=== PATIENT | female | born 1965 ===

== ENCOUNTER 2017-01-03 09:36 | Observation (INO) ==
[2017-01-03] MEDS ORDERED: Nitroglycerin 0.4 MG TAB.SUBL SL PRN (09:47)
[2017-01-03] MEDS ORDERED: Aspirin 325 MG TABLET PO ONE (09:47)
[2017-01-03 10:04] LABS: Basophils % 0.6 %; Hemoglobin 14.3 g/dL (11.5-15.4)
[2017-01-03 10:06] LABS: Eosinophils # 0.1 K/mcL (0.0-0.6); Eosinophils % 1.6 %; Hematocrit 41.9 % (35.3-44.9); Immature Platelets 37.9 % (1.1-6.1); Lymphocytes # 1.9 K/mcL (0.6-4.6); Lymphocytes % 30.3 %; Mean Corpuscular HGB Conc 34.1 g/dL (31.6-35.5); Mean Corpuscular Hemoglobin 29.4 pg (28.0-33.3); Mean Corpuscular Volume 86.2 fL (83.0-100.0); Monocytes # 0.3 K/mcL (0.0-1.3); Monocytes % 5.5 %; Neutrophils # 3.8 K/mcL (1.6-8.9); Platelet Count 131 K/mcL (140-400); Red Blood Count 4.86 M/mcL (3.82-4.97)
[2017-01-03 10:10] LABS: Prothrombin Time 10.6 Seconds (9.4-12.1)
--- NOTE | 2017-01-03 10:12 | Emergency Department Note ---
Disposition Clinical Impression: Dizziness, Ataxia Chest pain Qualifiers: Chest pain type: unspecified Qualified Code(s): R07.9 - Chest pain, unspecified Disposition: Admitted As Inpatient Condition: Fair Referrals: NO,PCP [Primary Care Provider] - Forms: ED Satisfaction Letter Time of Disposition: 11:53 Dizziness HPI - General Chief Complaint: ED Syncope Stated Complaint: "Passed Out" Time Seen by Provider: 01/03/17 09:46 Source: patient, family Mode of arrival: ambulatory Limitations: no limitations Nursing Notes Reviewed: Yes Vital Signs Reviewed: Yes - History of Present Illness HPI Narrative: Patient is a 51-year-old female with past medical history of diabetes. She presents today due to syncope versus near syncope. Patient was walking in the hospital, felt dizzy, she fell down. She is unsure if she lost consciousness or not. She says that she has been having dizzy spells now for several weeks, worsened when turning her head to the right. She is says that she has not had an official workup for this. She also has been having chest pain in the center of her chest the past 3 days. She currently has similar chest pain rated an 8 out of 10 described as a tightness. No radiation of the pain. Mild nausea, one episode of vomiting earlier this morning. Denies any fevers, diarrhea, abdominal pain. - Related Data Home Medications Medication Instructions Recorded Confirmed Metformin [Glucophage] 500 mg PO BID 10/11/15 10/11/15 Omeprazole [PriLOSEC] 20 mg PO DAILY 10/11/15 10/11/15 Previous Rx's Medication Instructions Recorded Acetaminophen [Tylenol] 650 mg PO Q6HR PRN #0 tablet 10/12/15 TraMADol [Ultram] 50 mg PO Q6HR PRN #30 tablet 10/12/15 Allergies Allergy/AdvReac Type Severity Reaction Status Date / Time latex Allergy Rash Verified 01/03/17 09:46 naproxen [From Naprosyn] AdvReac Rash Verified 01/03/17 09:46 Constitutional: Denies: fever Cardiovascular: Reports: chest pain Respiratory: Denies: cough, dyspnea, wheezes, hemoptysis Gastrointestinal: Reports: nausea, vomiting. Denies: abdominal pain, diarrhea Genitourinary: Denies: urgency, dysuria Musculoskeletal: Denies: back pain Integumentary: Denies: rash Neurological: Reports: vertigo. Denies: headache, weakness, numbness, paresthesias Past Medical History - Past Medical History Attestation: Yes The following information was validated with the patient. Source: patient Medical history: Reports: diabetes, hyperlipidemia Surgical history: Reports: appendectomy, hysterectomy Psychiatric history: Reports: no psych history - Social History Smoking Status: Never smoker Smokeless Tobacco Status: No Alcohol use: Reports: none Drug use: Reports: none Physical Exam - General Limitations: no limitations General appearance: alert, in no apparent distress - Head Head exam: atraumatic, normocephalic, normal inspection - Eye Eye exam: Present: normal appearance, PERRL, EOMI - ENT ENT exam: normal exam, normal oropharynx, mucous membranes moist - Neck Neck exam: Present: normal inspection, full ROM, trachea midline - Chest Chest inspection: Present: normal inspection, symmetric chest wall rise - Respiratory Respiratory exam: Present: normal lung sounds bilaterally. Absent: respiratory distress, wheezes - Cardiovascular Cardiovascular exam: Present: regular rate, normal rhythm, normal heart sounds - Abdominal Exam Abdominal exam: Present: soft, Non-Tender. Absent: tenderness, distention, guarding, rebound, rigidity - Extremities Exam Extremities exam: Present: normal inspection, full ROM. Absent: tenderness, pedal edema - Neurological Exam Neurological exam: Present: alert, oriented X3, other (Patient visibly dizzy on exam, becomes dizzy when she is raised up from a lying to sitting position. She also has dizziness when her head is turned to the right.) - Psychiatric Psychiatric exam: Present: normal affect, normal mood - Skin Skin exam: Present: warm, dry, intact, normal color Course Course Narrative: Vitals within normal limits. Physical exam shows Patient visibly dizzy on exam , becomes dizzy when she is raised up from a lying to sitting position. She also has dizziness when her head is turned to the right. Otherwise, the rest of her exam was benign. We will obtain workup, CT scan of the head, we will also give the patient nitroglycerin, aspirin for chest pain. We will also give meclizine for dizziness. 11:50 CT that was negative for any acute intracranial abnormality. EKG normal sinus rhythm and no acute changes. Basic blood work not concerning. Troponin negative. Patient had ambulated twice, was unable to because of dizziness, she felt off balance, she collapsed the first time that she tried to get up. Due to dizziness, ataxia, inability to ambulate, will admit for further workup. She was agreeable with this. Also she states her chest pain has gone, she has some mild acid reflux symptoms now. I offered a GI cocktail and she was agreeable with this. Chest X-Ray 01/03/17 09:47 IMPRESSION: No acute cardiopulmonary process. D/ / 01/03/2017 10:06:09 Dominik Fuller MD / madeline Interpreting Provider: Dominik Fuller MD Head CT 01/03/17 09:49 IMPRESSION: No acute intracranial abnormality. D/ / Brooks Galvez MD / Brooks Galvez MD Interpreting Provider: Brooks Galvez MD Vital Signs Temperature 98.4 F 01/03/17 09:46 Pulse Rate 71 01/03/17 09:46 Respiratory Rate 18 01/03/17 09:46 Blood Pressure 110/71 01/03/17 09:46 O2 Sat by Pulse Oximetry 99 01/03/17 09:46 Temperature 98.4 F 01/03/17 09:46 Pulse Rate 75 01/03/17 11:08 Respiratory Rate 18 01/03/17 11:08 Blood Pressure 127/70 01/03/17 11:08 O2 Sat by Pulse Oximetry 100 01/03/17 11:08 Oxygen Delivery Oxygen Delivery Room Air Dizziness - MDM Narrative Medical decision making narrative: Physical exam shows wheezes in bilateral lower lobes. EKG, chest x-ray, basic blood work ordered. Duonebs and prednisone ordered as well. Patient is currently 98% on room air. 11:36 blood work showed concerning abnormalities. Troponin negative. Chest x- ray showed no acute cardiopulmonary process. EKG showed no acute ST elevation or depression. Patient was reassessed after breathing treatments and she states that she feels much better. I offered her admission due to failed outpatient therapy. However, she said that she did not want to stay in the hospital. Currently her oxygen saturation is 98% on room air. Her lung sounds have improved. She has improved aeration. 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 She was happy and agreeable with this plan. She will return if she has any worsening symptoms. - Medical Records Medical records reviewed: Yes I reviewed the patient's medical records. - Lab Data Lab results reviewed: Yes I reviewed the patient's lab results. Result diagrams: 01/03/17 09:58 01/03/17 09:58 Lab Results 01/03/17 01/03/17 01/03/17 Range/Units 09:40 09:58 09:58 WBC 6.2 (4.3-11.1) K/mcL RBC 4.86 (3.82-4.97) M/mcL Hgb 14.3 (11.5-15.4) g/dL Hct 41.9 (35.3-44.9) % MCV 86.2 (83.0-100.0) fL MCH 29.4 (28.0-33.3) pg MCHC 34.1 (31.6-35.5) g/dL RDW 12.0 (11.5-14.5) % Plt Count 131 L (140-400) K/mcL Immature Gran % 1.0 (0-4) % Seg Neutrophils % 61.0 % Lymphocytes % 30.3 % Monocytes % 5.5 % Eosinophils % 1.6 % Basophils % 0.6 % Neutrophils # 3.8 (1.6-8.9) K/mcL Lymphocytes # 1.9 (0.6-4.6) K/mcL Monocytes # 0.3 (0.0-1.3) K/mcL Eosinophils # 0.1 (0.0-0.6) K/mcL Basophils # 0.0 (0.0-0.2) K/mcL Immature Plt Fraction 37.9 H (1.1-6.1) % PT 10.6 (9.4-12.1) Seconds INR 1.0 APTT 29.4 (26.0-36.0) Seconds Sodium (136-145) mEq/L Potassium (3.5-4.5) mEq/L Chloride (98-109) mEq/L Carbon Dioxide (19-29) mEq/L BUN (7-20) mg/dL Creatinine (0.57-1.11) mg/dL Est GFR ( Amer) (> 60) Est GFR (Non-Af Amer) (> 60) BUN/Creatinine Ratio (6-26) Glucose (70-99) mg/dL POC Glucose 318 H (58-89) Calculated Osmolality (280-300) Calcium (8.6-10.8) mg/dL Troponin I (0-0.03) ng/mL 01/03/17 01/03/17 Range/Units 09:58 09:58 WBC (4.3-11.1) K/mcL RBC (3.82-4.97) M/mcL Hgb (11.5-15.4) g/dL Hct (35.3-44.9) % MCV (83.0-100.0) fL MCH (28.0-33.3) pg MCHC (31.6-35.5) g/dL RDW (11.5-14.5) % Plt Count (140-400) K/mcL Immature Gran % (0-4) % Seg Neutrophils % % Lymphocytes % % Monocytes % % Eosinophils % % Basophils % % Neutrophils # (1.6-8.9) K/mcL Lymphocytes # (0.6-4.6) K/mcL Monocytes # (0.0-1.3) K/mcL Eosinophils # (0.0-0.6) K/mcL Basophils # (0.0-0.2) K/mcL Immature Plt Fraction (1.1-6.1) % PT (9.4-12.1) Seconds INR APTT (26.0-36.0) Seconds Sodium 137 (136-145) mEq/L Potassium 3.6 (3.5-4.5) mEq/L Chloride 102 (98-109) mEq/L Carbon Dioxide 25 (19-29) mEq/L BUN 17 (7-20) mg/dL Creatinine 1.01 (0.57-1.11) mg/dL Est GFR ( Amer) > 60 (> 60) Est GFR (Non-Af Amer) 58 L (> 60) BUN/Creatinine Ratio 17 (6-26) Glucose 363 H (70-99) mg/dL POC Glucose (58-89) Calculated Osmolality 300 (280-300) Calcium 9.2 (8.6-10.8) mg/dL Troponin I 0.00 (0-0.03) ng/mL - Radiology Data Radiology results reviewed: Yes I reviewed the patient's radiology results. Chest X-Ray 01/03/17 09:47 IMPRESSION: No acute cardiopulmonary process. D/ / 01/03/2017 10:06:09 Dominik Fuller MD / madeline Interpreting Provider: Dominik Fuller MD Head CT 01/03/17 09:49 IMPRESSION: No acute intracranial abnormality. D/ / Brooks Galvez MD / Brooks Galvez MD Interpreting Provider: Brooks Galvez MD - EKG Data EKG attestation: Yes I reviewed and interpreted this EKG. EKG results narrative: 01/03/17 09:51. Rate 74. SD interval 157. QRS 79. QTC 397. Normal axis. No acute ST elevation or depression. S.B.A.R. - S.[place]y.[place] Situation: Demographics, MOA Background: Presenting Complaint, Relevant PMH, Meds, & Allergies Assessment: Vital Signs, Course and respsone to treatment, Exam Concerns, Patient/Family Expectation, Pertinant Lab Results, Outstanding Labs Recommendation: Barrier(s) to disposition, Recommendation based on pending studies, treatments, or consults S.B.A.RRylan Report Given to: Dr. Connie Hutson Repor Time: 12:34 Attestation Statement - Attestation Attestation: I examined this patient and my medical decision-making was reviewed with the MANAGER SECURITY AND SAFETY/PA/Advanced Practice Nurse/Resident Physician. I agree with the documented findings, disposition and treatment plan as described except to the extent set forth below. Patient emergency department opening of dizziness. Describes as feeling like the room spinning. She is also complaining of some left ear pain. On examination she is awake alert no acute distress. States she is dizzy laying still with her eyes closed. Try to get up and walk couple of times and she is off balance. Lungs clear heart regular. Plan. Patient's dizzy and ataxic. CT unremarkable labs unremarkable. She is not any better after Antivert. Will admit.
[2017-01-03 10:13] LABS: Activated Partial Thrombo Time 29.4 Seconds (26.0-36.0)
[2017-01-03 10:17] LABS: BUN/Creatinine Ratio 17 (6-26); Blood Urea Nitrogen 17 mg/dL (7-20); Calcium 9.2 mg/dL (8.6-10.8); Carbon Dioxide 25 mEq/L (19-29); Chloride 102 mEq/L (98-109); Glucose 363 mg/dL (70-99); Osmolality,Calculated 300 (280-300); Potassium 3.6 mEq/L (3.5-4.5); Sodium 137 mEq/L (136-145); eGFR For African Americans > 60 (> 60); eGFR For Non-African Americans 58 (> 60)
[2017-01-03] MEDS ORDERED: GI Cocktail 40 ML EACH PO ONE (12:29)
--- NOTE | 2017-01-03 13:39 | Electrocardiograph Report ---
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
[2017-01-03] MEDS ORDERED: 0.9 % Sodium Chloride 1,000 ML IVC ONE (14:34)
[2017-01-03] MEDS ORDERED: Naloxone 0.4 MG/ML INJ IVP PRN (15:25)
[2017-01-03 15:34] LABS: Hemoglobin A1C 12.5 %
--- NOTE | 2017-01-03 15:59 | Event Note ---
Date of Encounter: 01/03/17 Time of Encounter: 15:58 I have independently interviewed and examined this patient. I agree with the resident/nurse practitioner with extensions as stated below. The plan of care has been discussed with the patient. Ms Thompson is a 51 Y/O F, Obese, DM, HTN, BPPV was visiting a family member and developed sudden dizziness. Patient reports she has been having dizziness for the past 18 months and has been to an ENT who informed her she has BPPV as well as left sided hearing impairment. At time of review, she was laying comfortably in bed but reports she feels dizzy on attempts to get up. She denies any speech deficits, motor deficits, sensory deficits, or visual problems Physical exam: VAA. Neuro exam, no facial paralysis, no speech deficits, CN intact, no nystagmus vertically or horizontally, no carotid bruit, chest is clear, heart sounds S1, S2 only, no m/g/r, no pedal edema Labs and Imaging reviewed: Head CT with mild L maxillary sinus thickening, CXR , EKG unremarkable. CBC/Chem: Hyperglycemia, thrombocytopenia, slight decrease in GFR. ECHO in 2016 normal resting ECHO, negative stress ECHO. Carotid Doppler unremarkable in 2016. Assessment/Plan: *Vertigo possibly secondary to BPPV with acute exacerbation, Menieres disease. Patient with previous admissions for same, possibly not compliant with medications. 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 *Depression: Continue Citalopram Rest of details as in SOHEILA Rouse documentation..
[2017-01-03 16:18] LABS: Albumin 3.5 g/dL (3.5-5.0); Albumin/Globulin Ratio 0.9 (1.1-2.2); Bilirubin,Direct 0.1 mg/dL (0.0-0.5); Bilirubin,Indirect 0.4 mg/dL (0.0-1.2); Bilirubin,Total 0.5 mg/dL (0.2-1.2); Globulin 3.7 g/dL (2.4-3.5); Total Protein 7.2 g/dL (6.0-8.3)
[2017-01-03] MEDS: 0.9 % Sodium Chloride 1,000 ML IVC SCH (16:48)
--- NOTE | 2017-01-03 16:56 | Internal Med History&Physical ---
Date of Encounter: 01/04/17 Time of Encounter: 15:15 Assessment and Plan (1) Chest pain Current visit: Yes Status: Acute Assess: Patient reports chest pain that is right-sided, feels like a pressure, and rates the pain at 6 on a pain scale of 0 to 10. She states that she has been experiencing this chest pain for 4 to 5 days. Patient denies that the pain radiates to her arms or back. Patient states that she also felt nauseous and vomited this morning. She denies having any recent illnesses, being around anyone who has been ill, fevers, diaphoresis, or night sweats. Plan: Continuous cardiac monitoring Nitroglycerin ordered PRN Continue aspirin Assess vitals Q4 Qualifiers: Chest pain type: unspecified Qualified Code(s): R07.9 - Chest pain, unspecified (2) Dizziness Current visit: Yes Status: Chronic Assess: Patient reports feeling dizziness, but cannot confirm full syncope. Reports she has been experiencing dizziness for several weeks and this has worsened, especially when turning her head to the right or changing positions. Reports that she has headaches that feel as though someone is squeezing her head, especially around the back of her head, when she is experiencing these dizzy spells. Patient states that her vision is blurry as well. Plan: Falls precautions Meclizine ordered PT consult ordered OT consult ordered (3) Meniere's disease of left ear Current visit: Yes Status: Chronic Assess: Patient reports feeling dizziness, but cannot confirm full syncope. Reports she has been experiencing dizziness for several weeks and this has worsened, especially when turning her head to the right or changing positions. Reports that she has headaches that feel as though someone is squeezing her head, especially around the back of her head, when she is experiencing these dizzy spells. Patient states that her vision is blurry as well. Mrs. Thompson states that she cannot hear in her left ear due to a feeling of fullness and fluid that is chronic. States she had tubes placed in her ears but are ineffective. Plan: ENT consult ordered Meclizine ordered Benadryl ordered (4) Headache Current visit: Yes Status: Acute Assess: Patient reports that she has headaches that feel as though someone is squeezing her head, especially around the back of her head, when she is experiencing these dizzy spells. Plan: Falls precautions Tylenol ordered for pain Qualifiers: Headache type: unspecified Headache chronicity pattern: acute headache Intractability: not intractable Qualified Code(s): R51 - Headache (5) Diabetes Current visit: Yes Status: Chronic Assess: Patient reports history of DM and is taking Metformin and insulin at home. Patient reports she monitors her blood glucose daily but has not done so for the past two weeks. Patient also reports eating sweets. Discussed keeping a daily diary of blood glucose readings at home post-discharge. Plan: Diabetic education consult ordered Initiate insulin protocol during admission Hypoglycemic protocol initiated Hold regular oral and home insulin during admission Blood glucose monitoring during admission Continue blood glucose monitoring at home post-discharge Maintain blood glucose diary post-discharge Qualifiers: Diabetes mellitus type: type 2 Diabetes mellitus complication status: with unspecified complications Qualified Code(s): E11.8 - Type 2 diabetes mellitus with unspecified complications (6) Thrombocytopenia Current visit: Yes Status: Chronic Assess: Patient has history of chronic thrombocytopenia. Current labs show platelet count of 131 and immature platelet fraction of 37.9. LFTs within range.Folow up Plan: Follow up with PCP (7) DVT prophylaxis Current visit: Yes Status: Acute DVT prophylaxis ordered due to patient being inpatient status, bed except with assist, and presentation with chest pain. Internal Medicine - H&P: HPI Admitted From: Emergency Dept Plans for Post Hospital Care: Home History of present illness: Mrs. Thompson is a 51 year old obese female who presents from the ED after falling while entering the hospital today. Patient reports feeling dizziness, but cannot confirm full syncope. Reports she has been experiencing dizziness for several weeks and this has worsened, especially when turning her head to the right or changing positions. Reports that she has headaches that feel as though someone is squeezing her head, especially around the back of her head, when she is experiencing these dizzy spells. Patient states that her vision is blurry as well. Mrs. Thompson states that she cannot hear in her left ear due to a feeling of fullness and fluid that is chronic. States she had tubes placed in her ears but are ineffective. She also reports chest pain that is right-sided , feels like a pressure, and rates the pain at 6 on a pain scale of 0 to 10. She states that she has been experiencing this chest pain for 4 to 5 days. Patient denies that the pain radiates to her arms or back. Patient states that she also felt nauseous and vomited this morning. She denies having any recent illnesses, being around anyone who has been ill, fevers, diaphoresis, or night sweats. Patient reports she sometimes has occasional diarrhea, but she attributes this to the Metformin she takes for her DM. Patient states that she has abdominal pain in her epigastric area and lower abdomen. Mrs. Thompson also reports having SOB at night 1-2x per week which makes her sit up in bed to catch her breath. confirmed this, along with the fact that she snores but denies apneic episodes. Patient has a history of DM, hyperlipidemia, benign paroxysmal positional vertigo, paroxysmal nocturnal dyspnea, chronic thrombocytopenia, osteoporosis, chest pain, acute sinusitis, otitis media, and depression. Patient denies any history of cardiac issues or heart disease. Tests performed 01/03/2017 include: CXR: lungs clear, no pleural effusion, no pneumothorax, and no acute cardiopulmonary process. EKG: normal sinus rhythm, normal ECG. HEAD CT w/o contrast: no hemorrhage or acute intracranial abnormality. BRAIN MRI: no suggestion of acute infarct, no hemorrhage or mass, no acute intracranial abnormality, empty sella turcica. Past Med Surg Social Fam HX - Past Medical History Medical history: diabetes, hyperlipidemia, osteoporosis Psychiatric history: no psych history, depression - Past Surgical History Surgical History: appendectomy, hysterectomy, other (Tonsillectomy, adenoidectomy) - Social History Smoking Status: Never smoker Smokeless Tobacco Status: No Alcohol use: none Drug use: none Occupational status: previously employed Current living situation: Home, With Family Activity Level: Independent ambulation Recent Out of Country Travel Within the Last 8 Weeks: No Exposure or Possible Exposure to Illness During Travel: No - Family History Father Race: / Family Member Ethnicity: Living Status: Cause of : Unknown Mother Age: 79 Race: / Family Member Ethnicity: Living Status: Still Living Brother Race: / Family Member Ethnicity: Living Status: Still Living (Mother and brother have no known health issues) Sister Age: 45 Race: / Family Member Ethnicity: Living Status: Still Living Hx Family Endocrine Disorder: Yes (DM) Hx Family Psychosocial Disorders: Yes (Depression) Internal Medicine - H&P: Meds Metformin [Glucophage] 1,000 mg PO BID 10/11/15 [History] Acetaminophen [Tylenol] 650 mg PO Q6HR PRN #0 tablet 10/12/15 [Rx] Atorvastatin [Lipitor] 40 mg PO HS 01/03/17 [History] Cholecalciferol (D-3) [Vitamin D] 2,000 unit PO DAILY 01/03/17 [History] Citalopram [CeleXA] 20 mg PO DAILY 01/03/17 [History] Insulin NPH, HUMAN [HumuLIN N] 15 unit SQ BID 01/03/17 [History] Allergies latex Allergy (Verified 01/03/17 09:46) Rash naproxen [From Naprosyn] Adverse Reaction (Verified 01/03/17 09:46) Rash All Systems PM: A 10-system review of systems was performed and is negative for pertinent findings except as documented above in the HPI. - Constitutional Constitutional: falls, other Additional comments: Patient reports a history of dizziness and vertigo over the past few weeks. States that she fell approximately three weeks ago and injured her right foot and ankle. States that she was seen by health care providers and x-ray was done. X-ray is normal with no visible fractures. Patient reports that ankle and top of foot are still very sore and she cannot place her full weight on the right foot due to the pain. She rates her foot pain at 6 on a scale of 0 to 10. Patient states that she was given Tylenol and a soft cast for her foot injury. Confirms she still uses the soft cast. - EENT Eyes: blurry vision Additional comments: Patient reports that her vision is blurry and this has accompanied her dizziness. Ears: decreased hearing Additional comments: Patient reports loss of hearing in left ear along with chronic feeling of pressure and fullness in this ear. Patient states she had tubes placed in both ears but this has been ineffective. Nose, mouth and throat: no dysphagia, no nasal discharge, no neck pain, no sore throat Additional comments: Patient reports history of sinus problems but denies sinus problems as this time. - Breasts Breasts: as per HPI - Cardiovascular Cardiovascular ROS IM: chest pain, lightheadedness, paroxysmal nocturnal dyspnea Additional comments: Patient reports she has a history of chest pain, vertigo, dizziness, and paroxysmal nocturnal dyspnea. States the PND wakes her from her sleep 1 to 2x per week. - Respiratory Respiratory: dyspnea, snoring Additional comments: Patient reports that she has SOB on occasion, paroxysmal nocturnal dyspnea, and her reports that she snores but denies apneic episodes. - Gastrointestinal Gastrointestinal: abdominal pain, diarrhea, nausea, vomiting Additional comments: Patient reports an episode of nausea and vomiting at home prior to her fall today. She also states that she has diarrhea sometimes due to her Metformin and reports abdominal pain that she is currently experiencing. - Genitourinary Genitourinary: as per HPI Additional comments: Patient reports seeing blood in her urine four weeks ago. Denies that it is ongoing. Additional comments: Patient reports having a hysterectomy. - Musculoskeletal Musculoskeletal ROS IM: as per HPI, other Additional comments: Patient reports ankle and foot pain related to fall she sustained three weeks ago. She rates her pain at 6 on a scale of 0 to 10. - Integumentary Integumentary IM: no rash, no unusual bruising - Neurological Neurological ROS: dizziness, headache(s), vertigo, other visual disturbances Additional comments: Patient reports history of dizziness and headaches that coincide with each other. She also reports history of vertigo and blurry vision that are ongoing. - Psychiatric Psychiatric: depression Additional comments: Patient reports a history of depression that she currently takes medication for. - Endocrine Endocrine IM: as per HPI - Hematologic/Lymphatic Hematologic/Lymphatic: as per HPI, easy bruising Additional comments: Patient reports that she bruises easily but that bruising is usually small and not hematomas. - Allergic/Immunologic Allergic/Immunologic: seasonal rhinorrhea Additional comments: Patient reports that she has seasonal allergies that she currently takes Loratidine for. - Constitutional Vitals: Temp Pulse Resp BP Pulse Ox 98.9 F 61 16 131/86 96 01/03/17 14:25 01/03/17 14:25 01/03/17 14:25 01/03/17 14:25 01/03/17 14:37 General appearance: Present: cooperative, A&O X 3, no acute distress, obese, answers questions appropriately - Head Head exam: Present: atraumatic, normocephalic - Eye Eye exam: Present: PERRL, conjuntiva pink, sclera anicteric Pupils: Present: PERRL Additional comments: No nystagmus upon eye examination. PERRLA. - ENT Additional comments: Patient cannot hear out of her left ear due to chronic fullness and feeling of fluid. Normal hearing in right ear. - Neck Neck exam general surgery: Present: normal inspection, trachea midline - Respiratory Respiratory exam: Present: CTAB. Absent: accessory muscle use, rales, rhonchi, wheezes - Cardiovascular Cardiovascular exam: Present: RRR, +S1, +S2. Absent: diastolic murmur, gallop, rubs, systolic murmur - GI/Abdominal GI/Abdominal exam: Present: guarding, normal bowel sounds, soft, tenderness Additional comments: Upon examination, patient has normal bowel sounds. Physical exam reveals patient guarding and tenderness in the abdomen which she states is ongoing. - Rectal Rectal exam: Present: deferred Additional comments: Patient reports her last BM was last night (brown, formed, no fecal occult blood ). - Additional comments: exam deferred. - Extremities Exam Extremities exam: Present: normal inspection, radial pulses palpable and symetrical Additional comments: Pain present in outer right ankle and top of right foot upon exam. Patient rates pain at 6 on a 0 to 10 scale. - Back Exam Back exam: Present: normal inspection - Neurological Exam Neurological exam: Present: CN II-XII intact, oriented X3, no focal deficits. Absent: pronater drift, facial droop, speech deficit - Psychiatric Psychiatric exam: Present: normal affect, normal mood - Skin Skin exam: Present: dry, intact Internal Med - H&P Results - Labs CBC & Chem 7: 01/03/17 09:58 01/03/17 09:58 - EKG Data EKG shows normal: sinus rhythm Rate: normal - EKG Data Prior EKG available for review: yes When compared to previous EKG: there is no significant change Interpretation IM: normal EKG - Diagnostic Studies Chest x-ray Additional comments: Lungs clear, no pleural effusion, no pneumothorax, no acute cardiopulmonary process. CT scan - head Additional comments: Head CT w/o contrast. No hemorrhage or acute intracranial abnormality. MRI - head Additional comments: No suggestion of acute infarct, no hemorrhage or mass, no acute intracranial abnormality, empty sella turcica.
--- NOTE | 2017-01-03 17:21 | ENT - Consult Note ---
Date of Encounter: 01/03/17 Time of Encounter: 17:15 Assessment and Plan (1) Dizziness Current Visit: Yes Status: Chronic Dizziness, vertigo and suspect multifactorial. BPPV and Meniere's not usually associated with syncopal episode/"passing out" and patient's chest pain. Low suspicion for BPPV but could represent an flare up her Left Menieres' disease or cervicogenic etiology given the left side neck pain, stiffness and headaches. Agree with Meclizine and if not helpful could use Ativan or Valium PRN. Vestibular therapy with neck physiotherapy would be helpful as well. no sign of labrynthitis or acute RONAL or infection. (2) Meniere's disease of left ear Current Visit: Yes Status: Chronic History of left Meniere's disease (left ear pressure, fullness, hearing loss, dizziness and ringing) diagnosed with ENT at [facility]. ? compliance with treatment as patient reports using Diuretics in the past but not currently on any diuretics. Consider restarting Dyazide or diuretic daily and discussed with the patient and her to follow a low Na+ diet. F/u with [facility] ENT and instructed them to call tomorrow and schedule a f/u for next week if possible. History of Present Illness Consult date: 01/03/17 Reason for ENT Consult: vertigo Requesting physician: Steve Kelley History of present illness: Mrs. Thompson is a 51 yo female with obesity, DM who had sudden onset of dizziness, and fell down. ? LOC. She was taken to the ED and CT of head was negative. She has just returned from the MRI. Has had CP for several days and she reports that this feels better now. No h/o heart issues or arrythmias in the past per the patient. She has a long h/o dizziness and vertigo with a diagnosis from [facility] ENT doctor of Meniere's disease left ear. Has had BPPV in the past as well. She reports that she does not follow a low sodium diet and that she used to be on a diuretic (not listed in current medications). The dizziness occurred today and lasted for 4 minutes with some vertigo, nausea, and vomiting. She has had it on and off for several days. last flare up of her vertigo was 5 months ago. She reports that it can occur standing up or with quick position changes. Laying down makes it better. She reports one or two episodes of dizziness with quick turning of her head a weak. Between flare ups she usually does well. Does have hearing loss left ear and c/o increased pressure in the left ear for 4 days. Increased ringing left ear and has had for many years. Right ear is OK. No ear draingae but has had some pain and radiates from temporal area to left neck and head. Neck stiffness x 4 days and increased headaches. No h/o ear surgery or trauma. On Meclizine and sleepy but feeling better with the vertigo. Has used Meclizine in the past as well. Past Med Surg Social Fam HX - Past Medical History Medical history: diabetes, hyperlipidemia, osteoporosis Psychiatric history: no psych history - Past Surgical History Surgical History: appendectomy, hysterectomy - Social History Smoking Status: Never smoker Smokeless Tobacco Status: No Alcohol use: none Drug use: none Medications and Allergies Metformin [Glucophage] 1,000 mg PO BID 10/11/15 [History] Acetaminophen [Tylenol] 650 mg PO Q6HR PRN #0 tablet 10/12/15 [Rx] Atorvastatin [Lipitor] 40 mg PO HS 01/03/17 [History] Cholecalciferol (D-3) [Vitamin D] 2,000 unit PO DAILY 01/03/17 [History] Citalopram [CeleXA] 20 mg PO DAILY 01/03/17 [History] Insulin NPH, HUMAN [HumuLIN N] 15 unit SQ BID 01/03/17 [History] Allergies latex Allergy (Verified 01/03/17 09:46) Rash naproxen [From Naprosyn] Adverse Reaction (Verified 01/03/17 09:46) Rash ENT Exam Initial Vital Signs Temp Pulse Resp BP Pulse Ox 98.4 F 71 18 110/71 99 01/03/17 09:46 01/03/17 09:46 01/03/17 09:46 01/03/17 09:46 01/03/17 09:46 Awake, alert, obese female in NAD. Laying on left side. Voice and speech clear and no facial or neck asymmetries Auricles WNL,no skin lesions. EAC clear bilaterally except for some mild wax Bilateral intact TM's, no RONAL, perforatoin or infection Nose no nasal deformity or skin lesions. Septum straight No pus, polyps , or rhionrrhea. Airway patent bilaterally OC/OP normal mucosa and dentition. Mild macroglossia No lesoins or asymmetries. Pharynx symmetrical . Tonsillectomy scar Neck supple, no LAD or neck masses. No thyroid or salivary gland lesions Good ROM of neck. Tender left SCM and occipital region on palpation No spontaneous or gaze evoked nystagmus. CN's II-XII grossly intact and symmetrical Quick head turning did not elicit any rotatory nystagmus. Exam Initial Vital Signs Temp Pulse Resp BP Pulse Ox 98.4 F 71 18 110/71 99 01/03/17 09:46 01/03/17 09:46 01/03/17 09:46 01/03/17 09:46 01/03/17 09:46 Results - Labs 01/03/17 09:58 01/03/17 09:58 Abnormal lab results Plt Count 131 K/mcL (140-400) L 01/03/17 09:58 Immature Plt Fraction 37.9 % (1.1-6.1) H 01/03/17 09:58 Est GFR (Non-Af Amer) 58 (> 60) L 01/03/17 09:58 Glucose 363 mg/dL (70-99) H 01/03/17 09:58 POC Glucose 155 (58-89) H 01/03/17 16:43 Hemoglobin A1c 12.5 % (-5.6) H 01/03/17 09:58 Globulin 3.7 g/dL (2.4-3.5) H 01/03/17 09:58 Albumin/Globulin Ratio 0.9 (1.1-2.2) L 01/03/17 09:58 All other labs normal. - Imaging Additional studies: CT head reviewed. Consult Discharge Plan - Plan Referrals: NO,PCP [Primary Care Provider] -
[2017-01-03] MEDS ORDERED: *HR* Dextrose 50 % in Water (Syg) 50 ML SYRINGE IVP PRN (17:29)
[2017-01-03] MEDS ORDERED: D5% in Water 1,000 ML IVC PRN (17:29)
[2017-01-03] MEDS ORDERED: Dextrose Gel 15 GM PO PRN ×2 (17:29)
[2017-01-03] MEDS: Insulin LISPRO 300 UNITS/3 ML VIAL SQ SCH (21:42)
[2017-01-03] MEDS: Insulin DETEMIR 100 UNIT/ML X5UNITS SQ SCH (21:43)
[2017-01-03] MEDS: Acetaminophen 325 MG TABLET PO PRN (21:48)
[2017-01-04] MEDS: 0.9 % Sodium Chloride 1,000 ML IVC SCH ×3 (02:56→22:31)
[2017-01-04] MEDS: *HR* Enoxaparin 40 MG/0.4 ML SYRINGE SQ SCH (06:37)
[2017-01-04] MEDS: Insulin LISPRO 300 UNITS/3 ML VIAL SQ SCH ×7 (08:35→20:42)
[2017-01-04] MEDS: Acetaminophen 325 MG TABLET PO PRN ×2 (09:33→15:59)
[2017-01-04] MEDS: Cholecalciferol (D-3) 1,000 UNIT TABLET PO SCH (09:33)
[2017-01-04] MEDS ORDERED: Aspirin 81 MG TAB.CHEW PO ONE (15:20)
--- NOTE | 2017-01-04 15:22 | Internal Med Progress Note ---
Date of Encounter: 01/04/17 Time of Encounter: 13:55 - Assessment and plan (1) Chest pain Current Visit: No Status: Acute Assessment and plan: unlikely cardiac, however will rule out ACS serial TNI ASA, Lipitor tele monitoring Qualifiers: Chest pain type: unspecified Qualified Code(s): R07.9 - Chest pain, unspecified (2) Meniere's disease of left ear Current Visit: Yes Status: Chronic Assessment and plan: ENT consultation appreciated Patient has history of being noncompliant with her menier's disease treatment as per Dr. Buck Will continue with Meclizine and add Ativan or Valium if needed PT eval likely d/c in am pending ACS work up is negative (3) Diabetes Current Visit: Yes Status: Chronic Assessment and plan: REpeat FS: 127 BG within acceptable range continue current insulin regimen monitor FS and BG SS insulin algorithm as needed Qualifiers: Diabetes mellitus type: type 2 Diabetes mellitus complication status: with unspecified complications Qualified Code(s): E11.8 - Type 2 diabetes mellitus with unspecified complications (4) DVT prophylaxis Current Visit: Yes Status: Acute Assessment and plan: Enoxaparin SQ - Subjective Interval history: Patient seen and examined at bedside. Resting in chair complaining of persistent dizziness. Reports of new onset substernal chest pain with radiation to the right arm worsened with deep inspiration. STAT EKG shows NSR at 71bpm, no ST segment changes, ASA to be given will obtain serial TNI PT eval LIkely d/c in am - Constitutional Vitals: Temp Pulse Resp BP Pulse Ox 98.5 F 60 16 104/70 96 01/04/17 11:36 01/04/17 11:36 01/04/17 11:36 01/04/17 11:36 01/04/17 11:36 General appearance: Present: cooperative, A&O X 3, no acute distress, obese, answers questions appropriately - Head Head exam: Present: atraumatic, normocephalic - Eye Eye exam: Present: PERRL, conjuntiva pink, sclera anicteric - Respiratory Respiratory exam: Present: CTAB. Absent: accessory muscle use, rales, rhonchi, wheezes - Cardiovascular Cardiovascular exam: Present: RRR, +S1, +S2. Absent: diastolic murmur, gallop, rubs, systolic murmur - GI/Abdominal GI/Abdominal exam: Present: normal bowel sounds, soft, no peritoneal signs. Absent: distended, tenderness - Extremities Exam Extremities exam: Present: warm, radial pulses palpable and symetrical. Absent : calf tenderness, cyanotic, pedal edema - Neurological Exam Neurological exam: Present: alert, oriented X3, no focal deficits - Psychiatric Psychiatric exam: Present: normal affect, normal mood Internal Medicine: Result - Labs CBC & Chem 7: 01/03/17 09:58 01/03/17 09:58 Labs: Cardiac Enzymes 01/04/17 Range/Units 14:18 Troponin I 0.01 (0-0.03) ng/mL - ABG Interpretation ABG results: PT/INR, D-dimer PT 10.6 Seconds (9.4-12.1) 01/03/17 09:58 - Impressions Impressions Brain MRI 01/03/17 14:34 IMPRESSION: 1. No acute intracranial abnormality. 2. Empty sella turcica. D/ / Sukumar Chambers MD / Sukumar Chambers MD Interpreting Provider: Sukumar Chambers MD Consult Discharge Plan - Plan Referrals: NO,PCP [Primary Care Provider] -
--- NOTE | 2017-01-04 16:21 | Electrocardiograph Report ---
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
[2017-01-04] MEDS: Insulin DETEMIR 100 UNIT/ML X5UNITS SQ SCH (20:42)
[2017-01-05 04:59] LABS: Basophils % 0.4 %; Immature Granulocytes % 0.6 % (0-4); Red Blood Count 4.15 M/mcL (3.82-4.97)
[2017-01-05 05:01] LABS: Eosinophils # 0.2 K/mcL (0.0-0.6); Eosinophils % 2.8 %; Hematocrit 35.9 % (35.3-44.9); Hemoglobin 11.9 g/dL (11.5-15.4); Immature Platelets 37.9 % (1.1-6.1); Lymphocytes # 2.9 K/mcL (0.6-4.6); Lymphocytes % 43.3 %; Mean Corpuscular HGB Conc 33.1 g/dL (31.6-35.5); Mean Corpuscular Hemoglobin 28.7 pg (28.0-33.3); Mean Corpuscular Volume 86.5 fL (83.0-100.0); Monocytes # 0.4 K/mcL (0.0-1.3); Monocytes % 5.2 %; Neutrophils # 3.2 K/mcL (1.6-8.9); Platelet Count 110 K/mcL (140-400); Segmented Neutrophils % 47.7 %
[2017-01-05 05:12] LABS: BUN/Creatinine Ratio 16 (6-26); Blood Urea Nitrogen 12 mg/dL (7-20); Calcium 8.5 mg/dL (8.6-10.8); Carbon Dioxide 23 mEq/L (19-29); Chloride 110 mEq/L (98-109); Glucose 121 mg/dL (70-99); Magnesium 1.6 mg/dL (1.6-2.6); Osmolality,Calculated 293 (280-300); Phosphorous 3.9 mg/dL (2.3-4.7); Potassium 3.7 mEq/L (3.5-4.5); Sodium 141 mEq/L (136-145); eGFR For African Americans > 60 (> 60); eGFR For Non-African Americans > 60 (> 60)
[2017-01-05 05:32] LABS: Platelet Estimate Decreased (Normal)
[2017-01-05] MEDS: *HR* Enoxaparin 40 MG/0.4 ML SYRINGE SQ SCH (06:17)
[2017-01-05] MEDS: Cholecalciferol (D-3) 1,000 UNIT TABLET PO SCH (07:35)
[2017-01-05] MEDS: Insulin LISPRO 300 UNITS/3 ML VIAL SQ SCH ×4 (07:37→12:07)
[2017-01-05] MEDS: 0.9 % Sodium Chloride 1,000 ML IVC SCH (11:17)
--- NOTE | 2017-01-05 12:35 | Discharge Summary ---
Date of Encounter: 01/05/17 Time of Encounter: 12:33 - Discharge Diagnosis (1) Chest pain Priority: Secondary Status: Resolved Qualifiers: Chest pain type: unspecified Qualified Code(s): R07.9 - Chest pain, unspecified (2) Meniere's disease of left ear Priority: Primary Status: Chronic (3) Diabetes Priority: Primary Status: Chronic Qualifiers: Diabetes mellitus type: type 2 Diabetes mellitus complication status: with unspecified complications Qualified Code(s): E11.8 - Type 2 diabetes mellitus with unspecified complications (4) DVT prophylaxis Priority: Secondary Status: Acute - Discharge Medications Prescriptions: Meclizine [Antivert] 25 mg PO TID PRN #30 tablet PRN Reason: Dizziness Home Medications: Metformin [Glucophage] 1,000 mg PO BID 10/11/15 [History] Acetaminophen [Tylenol] 650 mg PO Q6HR PRN #0 tablet 10/12/15 [Rx] Atorvastatin [Lipitor] 40 mg PO HS 01/03/17 [History] Cholecalciferol (D-3) [Vitamin D] 2,000 unit PO DAILY 01/03/17 [History] Citalopram [CeleXA] 20 mg PO DAILY 01/03/17 [History] Insulin NPH, HUMAN [HumuLIN N] 15 unit SQ BID 01/03/17 [History] Meclizine [Antivert] 25 mg PO TID PRN #30 tablet 01/05/17 [Rx] Allergies/Adverse Reactions: Allergies latex Allergy (Verified 01/03/17 09:46) Rash naproxen [From Naprosyn] Adverse Reaction (Verified 01/03/17 09:46) Rash Procedures/tests Complete & Pending: Procedures Performed prior 72 hours Category Date Time Status MR head/brain wo con [MR] Stat MRI 01/03/17 14:34 Completed ECG 12 lead ECG [ECG] Routine Y 01/04/17 13:59 Completed Date of admission: 01/03/17 13:01 Primary care physician: PCP NO Consults: 01/03/17 15:29 Consult to Occupational Therapy [CONS] Routine Comment: Evaluate, develop and implement POC Consult to Physical Therapy [CONS] Routine Comment: Evaluate, develop and implement POC 01/03/17 15:37 Consult to Oral Health Therapist [CONS] Routine Comment: 01/03/17 16:13 Consult to ENT [CONS] Routine Consulting Provider: KILO Morrison Reason for Consult: acute dizziness, hx of meniere's, vertigo Call Completed: Yes 01/04/17 15:16 Consult to [employer] Sales Consultant [CONS] Routine Reason for SW Consult: needs to set up outpatient therapy Discharging clinician: Keesha Carmichael Anticipated date of discharge: 01/05/17 - Patient Status Disposition: Home, Self-Care Condition: Good Functional capacity at discharge: independent ambulation Overall status at discharge: patient is back to baseline - Discharge Instructions Follow Up With: NO,PCP [Primary Care Provider] - Additional Instructions: Please follow up with your primary care physician within one week after your discharge from the hospital. Please follow up with ENT specialist at [facility] after your discharge from the hospital. Meclizine has been added to your home medications for dizziness, use this medications as prescribed. Please resume all your other home medications as prescribed by your primary care physician. - Diet and Activity Activity: resume usual activities as tolerated Diet: diabetic diet, low salt diet Hospital course: Ms. Thompson is a 51 year old female with PMH of DM, obesity, meniere's disease , htn who was admitted for management of dizziness. She was evaluated by ENT specialist. As per ENT patient has history of Meniere's disease and has been noncompliant with her treatment. Meclizine was started and patient was advised to follow up with ENT at [facility]. Patient was also evalluated by PT and outpatient rehab was recommended. Patient's hospital course was further complicated with episode of acute chest pain. Serial TNI and EKG were done and ACS was ruled out. Patient is currently hemodynamically stable and will be discharged to home with follow up with PCP and ENT. Patient is currently chest pain free. She demonstrates understanding of her diagnosis and agree with the discharge care plan. - Time Spent with Patient Total time spent providing and/or coordinating discharge services: Less than 30 minutes - Constitutional Vitals: Temp Pulse Resp BP Pulse Ox 98.9 F 89 18 118/79 93 01/05/17 10:22 01/05/17 12:15 01/05/17 10:22 01/05/17 12:15 01/05/17 10:22 General appearance: Present: cooperative, A&O X 3, morbidly obese, no acute distress, answers questions appropriately - Head Head exam: Present: atraumatic, normocephalic - Eye Eye exam: Present: PERRL, conjuntiva pink, sclera anicteric - Respiratory Respiratory exam: Present: CTAB. Absent: accessory muscle use, rales, rhonchi, wheezes - Cardiovascular Cardiovascular exam: Present: RRR, +S1, +S2. Absent: diastolic murmur, gallop, rubs, systolic murmur - GI/Abdominal GI/Abdominal exam: Present: normal bowel sounds, soft, no peritoneal signs. Absent: distended, tenderness - Extremities Exam Extremities exam: Present: warm, radial pulses palpable and symetrical. Absent : calf tenderness, cyanotic, pedal edema - Neurological Exam Neurological exam: Present: alert, oriented X3. Absent: pronater drift, facial droop, speech deficit - Psychiatric Psychiatric exam: Present: normal affect, normal mood
[2017-01-08 10:31] VITALS: BP 118/79
== END 2017-01-05 14:26 | disposition home or self-care (01) ==
LOC: EMEROO 09:36 → 3NENU 09:36 → SUATTDRO 13:01 → 3NENU 13:51
PROVIDERS: ADMIT Internal Medicine; ATTEND Internal Medicine

== ENCOUNTER 2017-12-12 15:32 | Observation (INO) ==
[2017-12-12] MEDS ORDERED: Ondansetron 4 MG/2 ML VIAL IVP ONE (16:09)
[2017-12-12] MEDS ORDERED: Aspirin 81 MG TAB.CHEW PO ONE (16:09)
--- NOTE | 2017-12-12 16:10 | Emergency Department Note ---
Disposition Clinical Impression: Chest pain Qualifiers: Chest pain type: unspecified Qualified Code(s): R07.9 - Chest pain, unspecified Diabetes Qualifiers: Diabetes mellitus type: type 2 Diabetes mellitus assisted insulin use: with termite treater use Diabetes mellitus complication status: with hyperglycemia Qualified Code(s): E11.65 - Type 2 diabetes mellitus with hyperglycemia Abdominal pain Qualifiers: Abdominal location: right lower quadrant Qualified Code(s): R10.31 - Right lower quadrant pain Disposition: Admitted As Inpatient Condition: Good Time of Disposition: 18:50 General Adult HPI - General Chief complaint: ED Abdominal Pain Stated complaint: RLQ Pain/CAMEJO/CP Time Seen by Provider: 12/12/17 15:42 Source: patient, family Mode of arrival: ambulatory Limitations: language barrier Nursing Notes Reviewed: Yes Vital Signs Reviewed: Yes - History of Present Illness HPI Narrative: 52-year-old female with significant past medical history of diabetes presenting to the emergency Department chief complaint of chest pain, abdominal pain and headache. Patient states she has had some lower abdominal pain for approximately one week today got significantly worse. Today she also started having substernal chest pain that radiated into the left side of her chest when nausea and diaphoresis. Patient has had no cardiac workup in the past. She did not try any medications at home for this. She also discloses headache with the symptoms. Patient denies any recent illnesses, fever, shortness of breath, vomiting or diarrhea. Pain Scale: 10 - Related Data Home Medications Medication Instructions Recorded Confirmed metFORMIN [Glucophage] 1,000 mg PO BIDWM 10/11/15 12/12/17 Calcium Carbonate [Calcium] 500 mg PO DAILY 12/12/17 12/12/17 Insulin NPH Hum/Reg Insulin Hm 24 unit SQ QPM 12/12/17 12/12/17 [Novolin 70-30 100 Unit/ml Vial] Insulin NPH Hum/Reg Insulin Hm 30 unit SQ QAM 12/12/17 12/12/17 [Novolin 70-30 100 Unit/ml Vial] Omeprazole [PriLOSEC] 20 mg PO DAILY 12/12/17 12/12/17 Allergies Allergy/AdvReac Type Severity Reaction Status Date / Time latex Allergy Rash Verified 12/12/17 15:35 naproxen [From Naprosyn] AdvReac Rash Verified 12/12/17 15:35 All systems ED: reviewed and negative except as stated. Cardiovascular: Reports: chest pain Gastrointestinal: Reports: abdominal pain, nausea Neurological: Reports: headache Past Medical History - Past Medical History Attestation: Yes The following information was validated with the patient. Medical history: Reports: diabetes, hyperlipidemia, osteoporosis Surgical history: Reports: appendectomy, hysterectomy, other (Tonsillectomy, adenoidectomy) Psychiatric history: Reports: no psych history, depression MACHINE TRIMMER history: Reports: no MACHINE TRIMMER history - Social History Smoking Status: Never smoker Smokeless Tobacco Status: No Alcohol use: Reports: none Drug use: Reports: none Physical Exam - General Limitations: language barrier General appearance: alert, in no apparent distress - Head Head exam: atraumatic, normocephalic, normal inspection - Eye Eye exam: Present: normal appearance. Absent: scleral icterus, conjunctival injection - ENT ENT exam: normal exam, mucous membranes moist - Neck Neck exam: Present: normal inspection, full ROM. Absent: tenderness, meningismus - Chest Chest inspection: Present: normal inspection, symmetric chest wall rise. Absent : tenderness, rash - Respiratory Respiratory exam: Present: normal lung sounds bilaterally. Absent: respiratory distress, wheezes - Cardiovascular Cardiovascular exam: Present: regular rate, normal rhythm, normal heart sounds - Abdominal Exam Abdominal exam: Present: soft, tenderness. Absent: distention, guarding, rebound, rigidity Abdominal tenderness: Present: suprapubic, moderate - Extremities Exam Extremities exam: Present: normal inspection, full ROM - Neurological Exam Neurological exam: Present: alert, oriented X3 - Psychiatric Psychiatric exam: Present: normal affect, normal mood - Skin Skin exam: Present: warm, intact Course Course Narrative: 52-year-old female presenting to the emergency Department chief complaint of chest pain and abdominal pain. Patient has no known cardiac disease. We will perform basic chest pain workup along with CT of the abdomen and pelvis. Patient still having 8 out of 10 chest pain at this time. We will provide her with aspirin and nitroglycerin. Patient is alert and oriented 3 in the room with stable vital signs. She agrees with this plan. - Reevaluation(s) Reevaluation #1: All patient's lab work has resulted within normal limits. Patient states chest pain is relieved with nitroglycerin. No acute EKG changes. Due to patient's heart score we will plan to admit the patient at this time. Patient is alert and oriented 3 in the room with stable vital signs. She agrees with this plan. I spoke with the hospitalist on-call Dr. Leroy who agrees to accept the patient at this time. Vital Signs Temperature 98.9 F 12/12/17 15:35 Pulse Rate 86 12/12/17 15:35 Respiratory Rate 16 12/12/17 15:35 Blood Pressure 118/72 12/12/17 15:35 O2 Sat by Pulse Oximetry 96 12/12/17 15:35 Temperature 97.8 F 12/13/17 16:42 Pulse Rate 66 12/13/17 16:42 Respiratory Rate 16 12/13/17 16:42 Blood Pressure 108/70 12/13/17 16:42 O2 Sat by Pulse Oximetry 97 12/13/17 16:42 Oxygen Delivery Oxygen Delivery Room Air Medical Decision Making - Medical Records Medical records reviewed: Yes I reviewed the patient's medical records. - Lab Data Lab results reviewed: Yes I reviewed the patient's lab results. Result diagrams: 12/13/17 03:23 12/13/17 03:23 Lab Results 12/12/17 12/12/17 Range/Units 16:20 16:20 WBC 7.6 (4.3-11.1) K/mcL RBC 4.54 (3.82-4.97) M/mcL Hgb 13.1 (11.5-15.4) g/dL Hct 39.4 (35.3-44.9) % MCV 86.8 (83.0-100.0) fL MCH 28.9 (28.0-33.3) pg MCHC 33.2 (31.6-35.5) g/dL RDW 12.6 (11.5-14.5) % Plt Count 125 L (140-400) K/mcL MPV TNP Immature Gran % 0.5 (0-4) % Seg Neutrophils % 59.0 % Lymphocytes % 32.8 % Monocytes % 5.2 % Eosinophils % 1.8 % Basophils % 0.7 % Neutrophils # 4.5 (1.6-8.9) K/mcL Lymphocytes # 2.5 (0.6-4.6) K/mcL Monocytes # 0.4 (0.0-1.3) K/mcL Eosinophils # 0.1 (0.0-0.6) K/mcL Basophils # 0.1 (0.0-0.2) K/mcL Platelet Estimate Slight Decrease L (Normal) Immature Plt Fraction 39.0 H (1.1-6.1) % Sodium 132 L (136-145) mEq/L Potassium 4.1 (3.5-5.1) mEq/L Chloride 100 (98-107) mEq/L Carbon Dioxide 23 (23-29) mEq/L BUN 18 (6-20) mg/dL Creatinine 0.93 (0.60-1.20) mg/dL Est GFR ( Amer) > 60 (> 60) Est GFR (Non-Af Amer) > 60 (> 60) BUN/Creatinine Ratio 19 (6-26) Glucose 378 H (70-105) mg/dL Calculated Osmolality 291 (280-300) Calcium 9.0 (8.6-10.3) mg/dL Total Bilirubin 0.3 (0.3-1.0) mg/dL AST 21 (13-39) Units/L ALT 26 (7-52) Units/L Alkaline Phosphatase 114 H (34-104) Units/L Troponin I < 0.03 (< 0.04) ng/mL Serum Total Protein 6.7 (6.4-8.9) g/dL Albumin 4.0 (3.5-5.7) g/dL Globulin 2.7 (2.4-3.5) g/dL Albumin/Globulin Ratio 1.5 (1.1-2.2) Lipase 55 (11-82) Units/L - Radiology Data Radiology results reviewed: Yes I reviewed the patient's radiology results. Abdomen/Pelvis CT 12/12/17 16:08 IMPRESSION: Diverticulosis coli without evidence of diverticulitis. Hepatic steatosis. Small left adnexal cyst, stable from prior. D/ / Chang Zamarripa MD / Chang Zamarripa MD Interpreting Provider: Chang Zamarripa MD Chest X-Ray 12/12/17 17:48 IMPRESSION: No acute cardiopulmonary disease. D/ / Adolfo Pike MD / Adolfo Pike MD Interpreting Provider: Adolfo Pike MD - EKG Data EKG #1 EKG attestation: Yes I reviewed and interpreted this EKG. EKG results narrative: Sinus rhythm. 87 bpm. MS interval 156, QRS 79, QTC 390. No signs of acute ST segment elevation or ischemia. Compared to previous EKG completed on 2016 no significant changes noted. Attestation Statement - Attestation Attestation: I examined this patient and my medical decision-making was reviewed with the Resident Physician, Dr. Hussein. I agree with the documented findings, disposition and treatment plan as described except to the extent set forth below. Patient is a 52-year-old white female with a history of diabetes mellitus who presents to emergency Department with multiple complaints today including left sided chest pain, lower abdominal pain, mild generalized headache. Patient also concerned that her blood sugars elevated and patient speaks very broken [place] and son is at bedside to help translate. Patient states she was having chest pain earlier today that is nonexertional left-sided radiating through to her back associated with some nausea and diaphoresis. Patient's also complained of a 2 day history of gradually worsening generalized lower abdominal pain with some mild nausea but no vomiting, no bowel changes, no urinary symptoms. Patient states that she has also had a mild generalized headache that was gradual in onset and improves with [id number] medications. Patient denies any recent fevers or chills, no upper respiratory symptoms cough or sore throat, no shortness of breath. Patient denies any cardiac history. I agree with patient's physical exam findings as documented. Vital signs are stable on arrival. Patient's EKG shows normal sinus rhythm with no acute ischemia. Patient was provided aspirin and nitroglycerin which resolved her chest pain. Patient also underwent chest x-ray which was within normal limits as well as an abdominal CT scan which was also within normal limits. Patient's labs otherwise unremarkable. Patient will be admitted for further evaluation of chest pain.
[2017-12-12 16:48] LABS: Basophils # 0.1 K/mcL (0.0-0.2); Basophils % 0.7 %; Eosinophils # 0.1 K/mcL (0.0-0.6); Eosinophils % 1.8 %; Hematocrit 39.4 % (35.3-44.9); Hemoglobin 13.1 g/dL (11.5-15.4); Immature Granulocytes % 0.5 % (0-4); Lymphocytes # 2.5 K/mcL (0.6-4.6); Lymphocytes % 32.8 %; Mean Corpuscular HGB Conc 33.2 g/dL (31.6-35.5); Mean Corpuscular Hemoglobin 28.9 pg (28.0-33.3); Mean Corpuscular Volume 86.8 fL (83.0-100.0); Monocytes # 0.4 K/mcL (0.0-1.3); Monocytes % 5.2 %; Neutrophils # 4.5 K/mcL (1.6-8.9); Platelet Count 125 K/mcL (140-400); Red Blood Count 4.54 M/mcL (3.82-4.97); Red Cell Distribution Width 12.6 % (11.5-14.5)
[2017-12-12 16:53] LABS: Troponin I < 0.03 ng/mL (< 0.04)
[2017-12-12 16:59] LABS: Alanine Aminotransferase 26 Units/L (7-52); Albumin/Globulin Ratio 1.5 (1.1-2.2); Alkaline Phosphatase 114 Units/L (34-104); Aspartate Amino Transferase 21 Units/L (13-39); BUN/Creatinine Ratio 19 (6-26); Bilirubin,Total 0.3 mg/dL (0.3-1.0); Blood Urea Nitrogen 18 mg/dL (6-20); Carbon Dioxide 23 mEq/L (23-29); Chloride 100 mEq/L (98-107); Globulin 2.7 g/dL (2.4-3.5); Glucose 378 mg/dL (70-105); Lipase 55 Units/L (11-82); Osmolality,Calculated 291 (280-300); Potassium 4.1 mEq/L (3.5-5.1); Sodium 132 mEq/L (136-145); Total Protein 6.7 g/dL (6.4-8.9); eGFR For African Americans > 60 (> 60); eGFR For Non-African Americans > 60 (> 60)
[2017-12-12 17:32] LABS: Platelet Estimate Slight Decrease (Normal)
[2017-12-12] MEDS ORDERED: Nitroglycerin 0.4 MG TAB.SUBL SL PRN (17:47)
[2017-12-12] MEDS ORDERED: Naloxone 0.4 MG/ML INJ IVP PRN (21:23)
[2017-12-12] MEDS ORDERED: Acetaminophen 325 MG TABLET PO PRN (21:23)
[2017-12-12] MEDS ORDERED: traMADol 50 MG TABLET PO PRN (21:23)
[2017-12-12] MEDS ORDERED: D5% in Water 1,000 ML IVC PRN (21:25)
[2017-12-12] MEDS ORDERED: Dextrose Gel 15 GM/37.5 ML TUBE PO PRN ×2 (21:25)
[2017-12-12] MEDS ORDERED: *HR* Dextrose 50 % in Water (Syg) 50 ML SYRINGE IVP PRN (21:25)
--- NOTE | 2017-12-12 21:32 | Internal Med History&Physical ---
Date of Encounter: 12/12/17 Time of Encounter: 21:15 Assessment and Plan (1) Chest pain Current visit: Yes Status: Acute To rule out ACS. EKG shows normal sinus rhythm. Continue telemetry monitoring , trend troponins. Check nuclear stress test tomorrow. Start aspirin. Check lipid profile. Qualifiers: Chest pain type: unspecified Qualified Code(s): R07.9 - Chest pain, unspecified (2) Abdominal pain Current visit: Yes Status: Acute Nonspecific. CT abdomen/pelvis shows hepatic steatosis, small left-sided adnexal cyst but no other acute abnormality. Continue diet as tolerated, supportive care. Currently improving. Qualifiers: Abdominal location: right lower quadrant Qualified Code(s): R10.31 - Right lower quadrant pain (3) Obesity Current visit: Yes Status: Chronic Qualifiers: Obesity type: due to excess calories Obesity classification: adult class 2 (BMI 35 - 39.9) Serious obesity comorbidity presence: without serious comorbidity Body mass index: BMI 37.0-37.9 Qualified Code(s): E66.09 - Other obesity due to excess calories; Z68.37 - Body mass index (BMI) 37.0-37.9, adult; Z68.37 - Body mass index (BMI) 37.0-37.9, adult (4) Headache Current visit: Yes Status: Acute Nonspecific. Currently worse with nitroglycerin. We will nitroglycerin for now , use when necessary Tylenol for appropriate headache control. Qualifiers: Headache type: tension-type Headache chronicity pattern: unspecified pattern Intractability: not intractable Qualified Code(s): G44.209 - Tension -type headache, unspecified, not intractable (5) Diabetes Current visit: Yes Status: Chronic Blood sugars noted to be elevated. No acidosis. Continue Accu-Chek blood glucose monitoring with basal bolus insulin regimen. Hemoglobin A1c. 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 Internal Medicine - H&P: HPI Chief complaint: chest pain Admitted From: Emergency Dept Plans for Post Hospital Care: Home History of present illness: Ms. Thompson is a 52 year old female with history of diabetes, Meniere's disease , who presents with complaints of headache, chest pain and abdominal pain. Patient reports that her symptoms started yesterday, with no aggravating or relieving factors. Headache has improved today, but currently worse after receiving nitroglycerin in the emergency room. No blurred vision, focal weakness. Her abdominal pain has started yesterday, intermittent, nonradiating , located in right lower quadrant, not associated with fever, vomiting or diarrhea. Chest pain is located in the central chest, nonradiating, intermittent, no aggravating factors, relieved with nitroglycerin. No prior cardiac workup. Past Med Surg Social Fam HX - Past Medical History Source: patient Medical history: diabetes, hyperlipidemia, osteoporosis Psychiatric history: no psych history, depression - Past Surgical History Surgical History: appendectomy, hysterectomy, other (Tonsillectomy, adenoidectomy) - Social History Smoking Status: Never smoker Smokeless Tobacco Status: No Alcohol use: none Drug use: none Current living situation: Home, With Family Activity Level: Independent ambulation Recent Out of Country Travel Within the Last 8 Weeks: No Exposure or Possible Exposure to Illness During Travel: No - Family History Father Family Member Ethnicity: Living Status: Mother Family Member Ethnicity: Living Status: Still Living Brother Family Member Ethnicity: Living Status: Still Living Sister Family Member Ethnicity: Living Status: Still Living Hx Family Endocrine Disorder: Yes (DM) Internal Medicine - H&P: Meds metFORMIN [Glucophage] 1,000 mg PO BIDWM 10/11/15 [History] Calcium Carbonate [Calcium] 500 mg PO DAILY 12/12/17 [History] Insulin NPH Hum/Reg Insulin Hm [Novolin 70-30 100 Unit/ml Vial] 24 unit SQ QPM 12/12/17 [History] Insulin NPH Hum/Reg Insulin Hm [Novolin 70-30 100 Unit/ml Vial] 30 unit SQ QAM 12/12/17 [History] Omeprazole [PriLOSEC] 20 mg PO DAILY 12/12/17 [History] 3 Allergy/AdvReac Type Severity Reaction Status Date / Time latex Allergy Rash Verified 12/12/17 15:35 naproxen [From Naprosyn] AdvReac Rash Verified 12/12/17 15:35 All Systems PM: A 10-system review of systems was performed and is negative for pertinent findings except as documented above in the HPI. - Constitutional Constitutional: no chills, no fever(s), no night sweats - EENT Eyes: no change in vision, no discharge, no pain, no photophobia Ears: no ear discharge, no ear pain, no tinnitus Nose, mouth and throat: no dysphagia, no nasal discharge, no neck pain, no sore throat - Cardiovascular Cardiovascular ROS IM: chest pain - Respiratory Respiratory: no cough, no dyspnea, no wheezing, no excessive phlegm production - Gastrointestinal Gastrointestinal: abdominal pain - Genitourinary Genitourinary: no change in urinary stream, no dysuria, no flank pain, no hematuria - Musculoskeletal Musculoskeletal ROS IM: no numbness, no tingling - Integumentary Integumentary IM: no rash, no unusual bruising - Neurological Neurological ROS: headache(s), no confusion, no convulsions, no focal weakness, no numbness, no tingling, no tremor(s) - Hematologic/Lymphatic Hematologic/Lymphatic: no easy bruising - Constitutional Vitals: Temp Pulse Resp BP Pulse Ox 97.7 F 70 18 137/87 96 12/12/17 21:29 12/12/17 21:29 12/12/17 21:29 12/12/17 21:29 12/12/17 21:29 General appearance: Present: A&O X 3, obese, answers questions appropriately - Respiratory Respiratory exam: Present: CTAB. Absent: accessory muscle use, rales, rhonchi, wheezes - Cardiovascular Cardiovascular exam: Present: RRR, +S1, +S2. Absent: diastolic murmur, gallop, rubs, systolic murmur - GI/Abdominal GI/Abdominal exam: Present: normal bowel sounds, soft, no peritoneal signs. Absent: distended, tenderness - Extremities Exam Extremities exam: Present: full ROM, warm, radial pulses palpable and symmetrical. Absent: calf tenderness, cyanotic, pedal edema - Neurological Exam Neurological exam: Present: CN II-XII intact, oriented X3, no focal deficits. Absent: pronater drift, facial droop, speech deficit Internal Med - H&P Results - Labs CBC & Chem 7: 12/12/17 16:20 12/12/17 16:20
[2017-12-12] MEDS: *HR* OxyCODONE Immed Rel 5 MG TABLET PO PRN (22:41)
[2017-12-12] MEDS: Insulin DETEMIR 100 UNIT/ML X5UNITS SQ SCH (22:42)
[2017-12-13] MEDS: Insulin LISPRO 300 UNITS/3 ML VIAL SQ SCH ×3 (00:30→12:45)
[2017-12-13 03:59] LABS: BUN/Creatinine Ratio 22 (6-26); Blood Urea Nitrogen 17 mg/dL (6-20); Calcium 8.6 mg/dL (8.6-10.3); Carbon Dioxide 27 mEq/L (23-29); Chloride 108 mEq/L (98-107); Chol/HDL Ratio 6.5 (0-4.9); Cholesterol 226 mg/dL (< 200); Glucose 65 mg/dL (70-105); HDL Cholesterol 35 mg/dL (40-59); LDL Cholesterol,Calculated 141 mg/dL (0-99); Osmolality,Calculated 290 (280-300); Potassium 3.5 mEq/L (3.5-5.1); Sodium 140 mEq/L (136-145); Triglycerides 252 mg/dL (< 150); eGFR For African Americans > 60 (> 60); eGFR For Non-African Americans > 60 (> 60)
[2017-12-13 04:05] LABS: Hemoglobin 13.2 g/dL (11.5-15.4)
[2017-12-13 04:06] LABS: Basophils # 0.1 K/mcL (0.0-0.2); Basophils % 0.6 %; Eosinophils # 0.2 K/mcL (0.0-0.6); Eosinophils % 1.9 %; Hematocrit 38.7 % (35.3-44.9); Immature Granulocytes % 0.7 % (0-4); Immature Platelets 37.7 % (1.1-6.1); Lymphocytes # 4.6 K/mcL (0.6-4.6); Lymphocytes % 53.4 %; Mean Corpuscular HGB Conc 34.1 g/dL (31.6-35.5); Mean Corpuscular Hemoglobin 29.1 pg (28.0-33.3); Mean Corpuscular Volume 85.4 fL (83.0-100.0); Monocytes # 0.6 K/mcL (0.0-1.3); Monocytes % 6.4 %; Neutrophils # 3.2 K/mcL (1.6-8.9); Platelet Count 128 K/mcL (140-400); Red Blood Count 4.53 M/mcL (3.82-4.97); Red Cell Distribution Width 12.5 % (11.5-14.5)
[2017-12-13] MEDS ORDERED: Regadenoson 0.4 MG/5 ML SYRINGE IVP ONE (05:44)
[2017-12-13] MEDS ORDERED: Aspirin Enteric Coated 81 MG Tablet PO SCH (09:00)
[2017-12-13] MEDS: Insulin DETEMIR 100 UNIT/ML X5UNITS SQ SCH (10:20)
[2017-12-13] MEDS: *HR* OxyCODONE Immed Rel 5 MG TABLET PO PRN (10:26)
[2017-12-13 14:23] LABS: Estimated Average Glucose 260 mg/dl; Hemoglobin A1C 10.7 %
--- NOTE | 2017-12-13 16:10 | Discharge Summary ---
Orders not resulted at time of discharge: Pending orders 12/13/17 06:00 NM spencer perf SPECT multi [NM] Routine Date of Encounter: 12/13/17 Time of Encounter: 16:08 - Discharge Diagnosis (1) Chest pain Priority: Primary Status: Acute Comments: 1 initially presented complaining of chest pain substernal radiated to left side of her chest she did have some nausea and diaphoresis. Cardiac Pharmacological nuclear stress test completed proctological stress eat CT is negative for ischemia at level of heart rate achieved perfusion imaging was negative for ischemia or infarct. Advised lifestyle changes due to patient's lipid panel is elevated and to follow -up PCP to have lipid panel rechecked Qualifiers: Chest pain type: unspecified Qualified Code(s): R07.9 - Chest pain, unspecified (2) Abdominal pain Priority: Secondary Status: Acute Comments: Presently patient is not complaining of any pain-CT abdomen pelvis showed hepatic steatosis small left sided aadnexal cysts but no other acute abnormality -continue diastolic tolerated supportive care follow-up with PCP as outpatient Qualifiers: Abdominal location: right lower quadrant Qualified Code(s): R10.31 - Right lower quadrant pain (3) Headache Priority: Secondary Status: Resolved Comments: Presently resolved Qualifiers: Headache type: tension-type Headache chronicity pattern: unspecified pattern Intractability: not intractable Qualified Code(s): G44.209 - Tension -type headache, unspecified, not intractable (4) Diabetes Priority: Secondary Status: Chronic Comments: Continue with home medications-diabetic diet Qualifiers: Diabetes mellitus type: type 2 Diabetes mellitus chcf insulin use: with chcf use Diabetes mellitus complication status: with hyperglycemia Qualified Code(s): E11.65 - Type 2 diabetes mellitus with hyperglycemia; Z79.4 - long-term (current) use of insulin; 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; Z79.4 - long-term (current) use of insulin; Z79.4 - oil heaterman (current ) use of insulin (5) Obesity Priority: Secondary Status: Chronic Comments: Encourage patient to exercise and stick to a low-fat low-cholesterol diet Qualifiers: Obesity type: due to excess calories Obesity classification: adult class 2 (BMI 35 - 39.9) Serious obesity comorbidity presence: without serious comorbidity Body mass index: BMI 37.0-37.9 Qualified Code(s): E66.09 - Other obesity due to excess calories; Z68.37 - Body mass index (BMI) 37.0-37.9, adult; Z68.37 - Body mass index (BMI) 37.0-37.9, adult Hospital course: Ms. Thompson is a 52 year old female past medical history of diabetes Meniere's disease originally presented to [facility] ED with complaints of headaches chest pain abdominal pain. Chest pain is located centrally nonradiating intermittent but no aggravating or relieving factors it was relieved with nitroglycerin however this did aggravate her headache she had no blurred vision or focal weaknesses. Abdominal pain was intermittent nonradiating lab work was obtained LFTs were within normal limits cardiac enzymes were negative CT of abdomen was negative for any acute abnormalities chest x-ray with no acute cardiopulmonary disease. Patient underwent a cardiac pharmalogical nuclear stress test which was negative for any ischemia or infarct. Presently she denies any abdominal pain or headache she is mostly complaining of breast pain particularly her left breast/nipple area. Advised patient to follow-up with primary care physician continue home medications. Advised lifestyle modifications including weight loss exercise and low fat low cholesterol diet. Patient verbalized understanding she is hemodynamically stable this time ready for discharge Discharge discussed with: patient Time spent discussing smoking cessation with patient: 3 to 10 minutes - Time Spent with Patient Total time spent providing and/or coordinating discharge services: - Discharge Medications Home Medications: metFORMIN [Glucophage] 1,000 mg PO BIDWM 10/11/15 [History] Calcium Carbonate [Calcium] 500 mg PO DAILY 12/12/17 [History] Insulin NPH Hum/Reg Insulin Hm [Novolin 70-30 100 Unit/ml Vial] 24 unit SQ QPM 12/12/17 [History] Insulin NPH Hum/Reg Insulin Hm [Novolin 70-30 100 Unit/ml Vial] 30 unit SQ QAM 12/12/17 [History] Omeprazole [PriLOSEC] 20 mg PO DAILY 12/12/17 [History] Allergies/Adverse Reactions: 3 Allergy/AdvReac Type Severity Reaction Status Date / Time latex Allergy Rash Verified 12/12/17 15:35 naproxen [From Naprosyn] AdvReac Rash Verified 12/12/17 15:35 Date of admission: 12/12/17 20:24 Primary care physician: Ira Chen, Discharging clinician: Henna Jiang Anticipated date of discharge: 12/13/17 - Constitutional Vitals: Temp Pulse Resp BP Pulse Ox 97.9 F 70 17 98/64 97 12/13/17 11:25 12/13/17 11:25 12/13/17 11:25 12/13/17 11:25 12/13/17 11:25 General appearance: Present: A&O X 3, obese, answers questions appropriately - Head Head exam: Present: atraumatic, normocephalic - Eye Eye exam: Present: PERRL, conjuntiva pink, sclera anicteric Pupils: Present: PERRL - Neck Neck exam general surgery: Present: supple, trachea midline. Absent: lymphadenopathy - Respiratory Respiratory exam: Present: CTAB. Absent: accessory muscle use, rales, rhonchi, wheezes - Cardiovascular Cardiovascular exam: Present: RRR, +S1, +S2. Absent: diastolic murmur, gallop, rubs, systolic murmur - GI/Abdominal GI/Abdominal exam: Present: normal bowel sounds, soft, no peritoneal signs. Absent: distended, tenderness - Extremities Exam Extremities exam: Present: warm, radial pulses palpable and symmetrical. Absent : calf tenderness, cyanotic, pedal edema - Neurological Exam Neurological exam: Present: CN II-XII intact, oriented X3, no focal deficits. Absent: pronater drift, facial droop, speech deficit - Skin Skin exam: Present: dry, intact - Patient Status Disposition: Home, Self-Care Condition: Good Functional capacity at discharge: independent ambulation Overall status at discharge: patient is not back to baseline - Discharge Instructions Instructions: Chest Pain (DC), Diabetes Mellitus Type 2 in Adults (DC) Follow Up With: Ira Chen MD [Primary Care Provider] - - Diet and Activity Activity: increase activity as tolerated Diet: diabetic diet, low fat, low cholesterol
[2017-12-13 16:42] VITALS: BP 108/70
--- NOTE | 2017-12-17 21:15 | Electrocardiograph Report ---
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
--- NOTE | 2017-12-17 21:22 | Electrocardiograph Report ---
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
== END 2017-12-13 18:32 | disposition home or self-care (01) ==
LOC: EMEROO 15:32 → 3BNU 15:32
PROVIDERS: ADMIT Registered Nurse; ATTEND Registered Nurse

== ENCOUNTER 2019-07-27 21:22 | Observation (INO) ==
[2019-07-28] MEDS ORDERED: Nitroglycerin 0.4 MG TAB.SUBL SL PRN (00:47)
[2019-07-28] MEDS ORDERED: Dextrose Gel 15 GM/37.5 ML TUBE PO PRN ×2 (00:51)
[2019-07-28] MEDS ORDERED: D5% in Water 1,000 ML IVC PRN (00:51)
[2019-07-28] MEDS ORDERED: *HR* Dextrose 50 % in Water (Syg) 50 ML SYRINGE IVP PRN (00:51)
[2019-07-28] MEDS ORDERED: Ondansetron 4 MG/2 ML VIAL IVP PRN (01:48)
[2019-07-28] MEDS ORDERED: Naloxone 0.4 MG/ML INJ IVP PRN (01:48)
[2019-07-28] MEDS ORDERED: Acetaminophen 325 MG TABLET PO PRN (01:48)
[2019-07-28] MEDS: traMADol 50 MG TABLET PO PRN ×3 (02:15→21:19)
[2019-07-28] MEDS: *HR* Heparin 5,000 UNIT/ML VIAL SQ SCH ×3 (05:29→21:14)
[2019-07-28] MEDS: Insulin LISPRO 300 UNITS/3 ML VIAL SQ SCH ×7 (05:51→16:35)
[2019-07-28] MEDS ORDERED: Regadenoson 0.4 MG/5 ML SYRINGE IVP ONE (06:15)
[2019-07-28 06:32] LABS: Estimated Average Glucose 315 mg/dl
[2019-07-28 07:51] LABS: Red Cell Distribution Width 12.5 % (11.5-14.5)
[2019-07-28 07:52] LABS: Hematocrit 36.6 % (35.3-44.9); Hemoglobin 12.6 g/dL (11.5-15.4); Immature Platelets 37.4 % (1.1-6.1); Mean Corpuscular HGB Conc 34.4 g/dL (31.6-35.5); Mean Corpuscular Hemoglobin 29.8 pg (28.0-33.3); Mean Corpuscular Volume 86.5 fL (83.0-100.0); Red Blood Count 4.23 M/mcL (3.82-4.97); White Blood Count 6.4 K/mcL (4.3-11.1)
[2019-07-28 08:18] LABS: Platelet Count 87 K/mcL (140-400)
[2019-07-28 08:21] LABS: BUN/Creatinine Ratio 30 (6-26); Blood Urea Nitrogen 18 mg/dL (6-20); Calcium 8.2 mg/dL (8.6-10.3); Carbon Dioxide 27 mEq/L (23-29); Chloride 105 mEq/L (98-107); Chol/HDL Ratio 5.7 (0-4.9); Cholesterol 199 mg/dL (< 200); Glucose 237 mg/dL (70-105); HDL Cholesterol 35 mg/dL (40-59); LDL Cholesterol,Calculated 103 mg/dL (0-99); Magnesium 1.8 mg/dL (1.6-2.6); Osmolality,Calculated 296 (280-300); Potassium 3.8 mEq/L (3.5-5.1); Sodium 138 mEq/L (136-145); Triglycerides 305 mg/dL (< 150); Troponin I < 0.03 ng/mL (< 0.04); eGFR For African Americans > 60 (> 60); eGFR For Non-African Americans > 60 (> 60)
[2019-07-28] MEDS: Aspirin Enteric Coated 81 MG Tablet PO SCH (09:08)
[2019-07-28] MEDS ORDERED: Insulin LISPRO 300 UNITS/3 ML VIAL SQ SCH (21:00)
[2019-07-28] MEDS ORDERED: Artificial Tears SOLN 15 ML BOTTLE BOTH EYES SCH (22:15)
[2019-07-29] MEDS: *HR* Heparin 5,000 UNIT/ML VIAL SQ SCH (06:08)
[2019-07-29 07:29] LABS: Red Cell Distribution Width 12.3 % (11.5-14.5)
[2019-07-29 07:30] LABS: Hematocrit 38.6 % (35.3-44.9); Hemoglobin 13.2 g/dL (11.5-15.4); Immature Platelets 41.1 % (1.1-6.1); Mean Corpuscular HGB Conc 34.2 g/dL (31.6-35.5); Mean Corpuscular Hemoglobin 29.7 pg (28.0-33.3); Mean Corpuscular Volume 86.7 fL (83.0-100.0); Red Blood Count 4.45 M/mcL (3.82-4.97); White Blood Count 6.3 K/mcL (4.3-11.1)
[2019-07-29 07:33] LABS: Platelet Count 87 K/mcL (140-400)
[2019-07-29 07:55] LABS: BUN/Creatinine Ratio 26 (6-26); Blood Urea Nitrogen 19 mg/dL (6-20); Calcium 8.8 mg/dL (8.6-10.3); Carbon Dioxide 26 mEq/L (23-29); Chloride 101 mEq/L (98-107); Glucose 238 mg/dL (70-105); Osmolality,Calculated 292 (280-300); Potassium 4.2 mEq/L (3.5-5.1); Sodium 136 mEq/L (136-145); eGFR For African Americans > 60 (> 60); eGFR For Non-African Americans > 60 (> 60)
[2019-07-29] MEDS: Aspirin Enteric Coated 81 MG Tablet PO SCH (08:16)
[2019-07-29] MEDS: Insulin LISPRO 300 UNITS/3 ML VIAL SQ SCH ×2 (08:16→12:08)
[2019-07-29] MEDS ORDERED: Multivit/Ca/Min/Fe/FA 1 TAB TABLET PO SCH (09:00)
[2019-07-29] MEDS ORDERED: Insulin NPH/REG 70/30 100 UNIT/ML (x5UNIT) SQ SCH (09:00)
[2019-07-29] MEDS ORDERED: Ibuprofen 600 MG TABLET PO ONE (09:51)
[2019-07-29 11:54] VITALS: BP 115/71
== END 2019-07-29 14:06 | disposition home or self-care (01) ==
LOC: 3BNU → SUATTDRO 22:57
PROVIDERS: ADMIT Internal Medicine; ATTEND Internal Medicine